=== PATIENT | female | born 1980 ===

== ENCOUNTER 2019-11-28 05:15 | Inpatient (IN) | payer BC, OTHER ==
[2019-11-28] MEDS ORDERED: Sodium Chloride 0.9% 2.5 ML Syringe FLUSH PRN (05:19)
[2019-11-28] MEDS ORDERED: ceFAZolin 2 GM in Premix Bag 1 BAG IV ONE (05:19)
[2019-11-28] MEDS ORDERED: Citric Acid/Sodium Citrate Solution 30 ML Cup PO ONE (05:19)
[2019-11-28] MEDS ORDERED: Sodium Chloride 0.9% 10 ML SDV IV PRN (05:19)
[2019-11-28] MEDS ORDERED: Ondansetron 4 MG/2 ML SDV IVPUSH PRN ×3 (05:19→08:49)
[2019-11-28] MEDS ORDERED: Oxytocin/0.9 % Sodium Chloride 30 UNIT/500 ML BAG IV SCH (05:30)
[2019-11-28] MEDS: Lactated Ringers 1,000 ML IV SCH ×2 (05:40→07:20)
[2019-11-28 06:42] LABS: BLOOD UREA NITROGEN,BUN 15 mg/dL (7.0-18.0); CARBON DIOXIDE,CO2 25.7 mmol/L (21.0-32.0); CHLORIDE,CL 105 mmol/L (98-107); GLUCOSE RANDOM 90 mg/dL (74-106); POTASSIUM,K 4.3 mmol/L (3.5-5.1); SODIUM,NA 139 mmol/L (136-145)
--- NOTE | 2019-11-28 07:10 | PCM.PREANE ---
Preanesthetic Assessment - Anesthesia/Transfusion/Family Hx Anesthesia History: Prior Anesthesia Without Reaction Family History of Anesthesia Reaction: No Transfusion History: No Prior Transfusion(s) Intubation History: Unknown - Review of Systems General: No Symptoms Pulmonary: No Symptoms Cardiovascular: No Symptoms Gastrointestinal: No Symptoms Neurological: No Symptoms Other: Reports: None - Physical Assessment Height: 5 ft 10.5 in Weight: 123.831 kg ASA Class: 2 Mental Status: Alert & Oriented x3 Airway Class: Mallampati = 2 Dentition: Reports: Normal Dentition (lower retainer) Thyro-Mental Finger Breadths: 3 Mouth Opening Finger Breadths: 3 ROM/Head Extension: Full Lungs: Clear to Auscultation, Normal Respiratory Effort Cardiovascular: Regular Rate, Regular Rhythm - Lab Values: Laboratory Last Values WBC 12.04 K/uL (4.0-11.0) H 11/28/19 05:55 RBC 3.88 M/uL (4.30-5.90) L 11/28/19 05:55 Hgb 11.2 g/dL (12.0-16.0) L 11/28/19 05:55 Hct 34.4 % (36.0-46.0) L 11/28/19 05:55 MCV 88.7 fL (80.0-98.0) 11/28/19 05:55 MCH 28.9 pg (27.0-32.0) 11/28/19 05:55 MCHC 32.6 g/dL (31.0-37.0) 11/28/19 05:55 RDW Std Deviation 47.5 fl (28.0-62.0) 11/28/19 05:55 RDW Coeff of Juan Miguel 15 % (11.0-15.0) 11/28/19 05:55 Plt Count 241 K/uL (150-400) 11/28/19 05:55 MPV 10.90 fL (7.40-12.00) 11/28/19 05:55 Nucleated RBC % 0.0 /100WBC 11/28/19 05:55 Nucleated RBCs # 0 K/uL 11/28/19 05:55 Sodium 139 mmol/L (136-145) 11/28/19 05:55 Potassium 4.3 mmol/L (3.5-5.1) 11/28/19 05:55 Chloride 105 mmol/L (98-107) 11/28/19 05:55 Carbon Dioxide 25.7 mmol/L (21.0-32.0) 11/28/19 05:55 BUN 15 mg/dL (7.0-18.0) 11/28/19 05:55 Creatinine 1.0 mg/dL (0.6-1.0) 11/28/19 05:55 Est Cr Clr Drug Dosing 81.40 mL/min 11/28/19 05:55 Estimated GFR (MDRD) > 60.0 ml/min 11/28/19 05:55 Glucose 90 mg/dL (74-106) 11/28/19 05:55 Uric Acid 5.3 mg/dL (2.6-7.2) 11/28/19 05:55 Calcium 8.8 mg/dL (8.5-10.1) 11/28/19 05:55 Total Bilirubin 0.1 mg/dL (0.2-1.0) L 11/28/19 05:55 AST 18 IU/L (15-37) 11/28/19 05:55 ALT 15 IU/L (14-63) 11/28/19 05:55 Alkaline Phosphatase 131 U/L (46-116) H 11/28/19 05:55 Total Protein 5.8 g/dL (6.4-8.2) L 11/28/19 05:55 Albumin 2.3 g/dL (3.4-5.0) L 11/28/19 05:55 Globulin 3.5 g/dL (2.6-4.0) 11/28/19 05:55 Albumin/Globulin Ratio 0.7 (0.9-1.6) L 11/28/19 05:55 Blood Type O POSITIVE 11/28/19 05:55 Antibody Screen NEGATIVE 11/28/19 05:55 - Allergies Allergies/Adverse Reactions: Allergies Allergy/AdvReac Type Severity Reaction Status Date / Time Penicillins Allergy Hives Verified 11/28/19 05:19 - Blood Blood Available: No - Anesthesia Plan Pre-Op Medication Ordered: None - Acknowledgements Anesthesia Type Planned: Spinal (general anesthesia back-up plan) Pt an Appropriate Candidate for the Planned Anesthesia: Yes Alternatives and Risks of Anesthesia Discussed w Pt/Guardian: Yes Pt/Guardian Understands and Agrees with Anesthesia Plan: Yes PreAnesthesia Questionnaire HEENT History: Reports: Other (See Below) Other HEENT History: wears glasses/contacts, has a permanent lower dental retainer Cardiovascular History: Reports: Hypertension Respiratory History: Reports: Other (See Below) Other Respiratory History: has not been tested for sleep apnea but uses her fathers CPAP every night and sleeps better than before CPAP use Gastrointestinal History: Reports: GERD, Hiatal Hernia Other Gastrointestinal History: cannot lay flat at night- wakes up vomiting if she does. Has taken Omeprazole for many years Genitourinary History: Reports: Other (See Below) Other Genitourinary History: states her "lab tests for kidney go up and down" FOOD CRITIC History: Reports: Musculoskeletal History: Reports: Arthritis, Back Pain, Chronic, Fracture Other Musculoskeletal History: hx of fx ribs and pelvis, has chronic hip and pelvic pain Psychiatric History: Reports: Anxiety, Depression Endocrine/Metabolic History: Reports: Obesity/BMI 30+ - Infectious Disease History Infectious Disease History: Reports: Chicken Pox - Past Surgical History Head Surgeries/Procedures: Reports: None Female Surgical History: Reports: Breast Reduction - SUBSTANCE USE Smoking Status *Q: Never Smoker Second Hand Smoke Exposure: No Recreational Drug Use History: No - HOME MEDS Home Medications: Home Meds Aspirin [Adult Low Dose Aspirin EC] 81 mg PO DAILY 11/22/19 [History] Labetalol HCl [Labetalol] 200 mg PO BID 11/22/19 [History] NIFEdipine [Procardia XL] 30 mg PO QPM 11/22/19 [History] Omeprazole 60 mg PO BID 11/22/19 [History] No122/Iron/Folic Acid [ Multi Tablet] 1 tab PO DAILY 11/22/19 [ History] Venlafaxine [Effexor] 75 mg PO QPM 11/22/19 [History] busPIRone [Buspar] 10 mg PO BID 11/22/19 [History] traZODone HCl [Trazodone HCl] 150 mg PO BEDTIME 11/22/19 [History] - CURRENT (IN HOUSE) MEDS Current Meds: Current Medications Lactated Ringer's (Ringers, Lactated) 1,000 mls @ 500 mls/hr IV BOLUS [facility] Last Admin: 11/28/19 05:40 Dose: 500 mls/hr Oxytocin/Sodium Chloride (Oxytocin 30 Unit/500 Ml-Ns) 30 unit in 500 mls @ 250 mls/hr IV TITRATE [facility] Ondansetron HCl (Zofran) 4 mg IVPUSH Q4H PRN PRN Reason: Nausea/Vomiting Sodium Chloride (Saline Flush) 10 ml FLUSH ASDIRECTED PRN PRN Reason: Keep Vein Open Sodium Chloride (Saline Flush) 2.5 ml FLUSH ASDIRECTED PRN PRN Reason: Keep Vein Open Sodium Chloride (Normal Saline) 10 ml IV ASDIRECTED PRN PRN Reason: IV Use Discontinued Medications Citric Acid/Sodium Citrate (Bicitra Solution) 30 ml PO ONETIME ONE Stop: 11/28/19 05:20 Cefazolin Sodium/Dextrose 2 gm (/ Premix) 50 mls @ 100 mls/hr IV ONETIME ONE Stop: 11/28/19 05:48
[2019-11-28] MEDS ORDERED: Propofol 200 MG/20 ML SDV ONE (07:18)
[2019-11-28] MEDS ORDERED: Ondansetron 4 MG/2 ML SDV ONE (07:18)
[2019-11-28] MEDS ORDERED: Oxytocin 10 Units/1 ML SDV ONE (07:19)
[2019-11-28] MEDS ORDERED: Sodium Chloride 0.9% 20 ML ONE ×4 (07:19→08:32)
[2019-11-28] MEDS ORDERED: ePHEDrine 50 MG/ML SDV ONE ×3 (07:19→08:32)
[2019-11-28] MEDS ORDERED: Famotidine 20 MG/2 ML SDV ONE (07:36)
[2019-11-28] MEDS ORDERED: ceFAZolin 1 GM Vial ONE (07:51)
[2019-11-28] MEDS ORDERED: Morphine PF 10 MG/10 ML SDV ONE (07:51)
[2019-11-28] MEDS ORDERED: Naloxone 0.4 MG/ML Syringe IVPUSH PRN (08:36)
[2019-11-28] MEDS ORDERED: fentaNYL 100 MCG/2 ML SDV IVPUSH PRN (08:36)
[2019-11-28] MEDS ORDERED: diphenhydrAMINE 50 MG/ML SDV IVPUSH PRN ×2 (08:36→08:49)
[2019-11-28] MEDS ORDERED: Acetaminophen/oxyCODONE 325-5 MG Tab PO PRN ×3 (08:36→08:49)
[2019-11-28] MEDS ORDERED: Misoprostol 200 MCG Tab RECTAL PRN (08:49)
[2019-11-28] MEDS ORDERED: Methylergonovine 0.2 MG/1 ML Amp IM PRN (08:49)
[2019-11-28] MEDS ORDERED: Oxytocin 10 Units/1 ML SDV IM PRN (08:49)
[2019-11-28] MEDS ORDERED: Bisacodyl 10 MG Supp RECTAL PRN (08:49)
[2019-11-28] MEDS ORDERED: Tranexamic Acid 1,000 MG in Sodium Chloride 0.9% 100 ML IV PRN (08:49)
[2019-11-28] MEDS ORDERED: Lanolin 100% Cream 7 GM Tube TOP PRN (08:49)
[2019-11-28] MEDS ORDERED: Ibuprofen 800 MG Tab PO PRN (08:49)
--- NOTE | 2019-11-28 08:57 | PCM.OPNOTE ---
- General Post-Op/Procedure Note Date of Surgery/Procedure: 11/28/19 Operative Procedure(s): Primary low-transverse section Findings: Live female in cephalic presentation, Apgars 8/8, weight pending. Normal-appearing uterus, ovaries, and tubes. Placenta with 3-vessel cord. Pre Op Diagnosis: 39yo @ 37w3d. Desires primary delivery. Chronic hypertension. Advanced maternal age Post-Op Diagnosis: 39yo . Desires primary delivery. Chronic hypertension. Advanced maternal age Anesthesia Technique: Spinal Primary Surgeon: Cynthia Vasquez Pathology: Placenta Fluid Replacement, Intraop: 2,400 Output, Urine Amount: 120 EBL in mLs: 700 Complications: 6mm burn of skin left inferior aspect of pfannenstiel Condition: Good
[2019-11-28] MEDS ORDERED: Oxytocin/Lactated Ringers 30 UNIT/500 ML BAG IV SCH (09:00)
[2019-11-28] MEDS ORDERED: Lactated Ringers 1,000 ML IV SCH (09:00)
[2019-11-28] MEDS: Ketorolac 30 MG/ML SDV IVPUSH SCH ×3 (09:32→21:30)
[2019-11-28] MEDS: Sodium Chloride 0.9% 10 ML Syringe FLUSH PRN ×2 (09:35→15:37)
--- NOTE | 2019-11-28 09:35 | PCM.POSTAN ---
POST ANESTHESIA ASSESSMENT - VITAL SIGNS Vital Signs: Bp maintaining. Ephidrine once in recovery. Will continue to watch. Rx as needed. - RESPIRATORY Respiratory Status: Respiratory Rate WNL - CARDIOVASCULAR CV Status: Pulse Rate WNL Free Text/Narrative:: Ephidrine 15mg x1 in recovery. - GASTROINTESTINAL GI Status: No Symptoms, Nauseau Free Text/Narrative:: Gets Queezy with BPs < 94. - PAIN Pain Score: 0 (Block regressing) - POST OP HYDRATION Hydration Status: Adequate & Stable
[2019-11-28] MEDS: busPIRone 5 MG Tab PO SCH ×2 (10:43→21:31)
[2019-11-28] MEDS: Docusate Sodium 100 MG Cap PO SCH ×2 (10:43→21:31)
[2019-11-28] MEDS: Omeprazole 20 MG Cap.CR PO SCH ×2 (10:43→21:32)
[2019-11-28] MEDS: Labetalol 100 MG Tab PO SCH ×2 (10:43→21:31)
[2019-11-28] MEDS: Nalbuphine 10 MG/1 ML Vial IVPUSH PRN ×2 (12:52→19:34)
--- NOTE | 2019-11-28 14:37 | OR ---
SURGEON: Cynthia Vasquez MD DATE OF PROCEDURE: 11/28/2019 PREOPERATIVE DIAGNOSES: 1. A 39-year-old, G2, P0-0-1-0 at 37 weeks and 3 days gestation. 2. Desires primary delivery upon maternal request. 3. Chronic hypertension. 4. Advanced maternal age. POSTOPERATIVE DIAGNOSES: 1. A 39-year-old, G2, P1-0-1-1. 2. Desires primary delivery upon maternal request. 3. Chronic hypertension. 4. Advanced maternal age. PROCEDURE: Primary low transverse section. PRIMARY SURGEON: Cynthia Vasquez MD ANESTHESIA: Spinal. IV FLUIDS: 2400 mL LR. URINE OUTPUT: 120 mL. ESTIMATED BLOOD LOSS: 700 mL. PATHOLOGY: Placenta. FINDINGS: 1. Live female , cephalic presentation, scores 8 and 8 at one and five minutes respectively, weight 3280g. 2. Normal-appearing uterus, ovaries, and tubes. 3. Placenta with 3-vessel cord. COMPLICATIONS: 6 mm burn of skin on the left inferior aspect of the Pfannenstiel incision. INDICATIONS: This is a 39-year-old G2, P0-0-1-0 who presented at 37 weeks and 3 days gestation for planned delivery. The patient desired delivery upon maternal request. The delivery was planned early due to chronic hypertension, on labetalol and nifedipine. Prior to surgery, the risks and benefits of delivery versus vaginal delivery were discussed with the patient and she continued to desire primary delivery upon maternal request. PROCEDURE IN DETAIL: The patient was taken to the operating room where spinal anesthesia was obtained. She was placed in the dorsal supine position with leftward tilt. She was prepared and draped in a normal sterile fashion. A Pfannenstiel skin incision was made with a scalpel and carried through to the underlying fascia with the Bovie. A subcutaneous vessel began bleeding. The hemostat was used to grasp this vessel and Bovie used to obtain hemostasis. During this process, the skin was inadvertently burned on the left inferior aspect of the incision. The fascia was incised in the midline and the incision extended laterally with curved Buitrago scissors. The superior aspect of fascial incision was grasped with Luciana clamps, elevated, and underlying rectus muscles dissected off bluntly. In a similar fashion, inferior aspect of the fascial incision was grasped with Luciana clamps, elevated, and underlying rectus muscles dissected off bluntly. The peritoneum was identified in the midline and entered bluntly. The peritoneal incision was extended using manual traction. A large Filipe retractor was placed. A low uterine hysterotomy was created. The placenta was noted at the site of the hysterotomy. The head was delivered with rupture of membranes occurring. Using fundal pressure, the infant was delivered. The nose and mouth were suctioned with bulb suction. The was dried with a blue towel. The cord was clamped after approximately 30 seconds of delayed cord clamping. The was handed off to the awaiting nurse. The placenta was removed manually. Cord blood was obtained. The uterus was cleared of all clots and debris. The uterine incision was repaired with a running lock stitch of 0 Vicryl suture. Hemostasis was observed. The gutters were cleared of all blood. The uterus was returned to the abdomen. The hysterotomy was inspected, noted to be hemostatic. The Filipe retractor was removed. The fascia was closed with a running stitch of 0 Vicryl suture. Subcutaneous tissue was closed with 3-0 Vicryl. The skin was closed with 4-0 Monocryl in a subcuticular fashion. The patient and tolerated the delivery well. All sponge, lap, and needle counts were correct x2. 2 g of Ancef was given prior to incision. GUILLE / NIEVES /[id number] MTDD
[2019-11-28] MEDS: NIFEdipine 30 MG Tab.ER PO SCH (19:34)
[2019-11-28] MEDS: Venlafaxine 75 MG Cap.ER PO SCH (19:34)
[2019-11-28] MEDS: Silver Sulfadiazine 1% Crm 50 GM Tube TOP SCH (21:32)
[2019-11-29] MEDS: Ketorolac 30 MG/ML SDV IVPUSH SCH ×2 (06:02→13:06)
[2019-11-29] MEDS: Nalbuphine 10 MG/1 ML Vial IVPUSH PRN (06:11)
--- NOTE | 2019-11-29 07:58 | PCM48HPAN ---
Post Anesthesia Note - EVALUATION WITHIN 48HRS OF ANESTHETIC Vital Signs in Normal Range: Yes Patient Participated in Evaluation: Yes Respiratory Function Stable: Yes Airway Patent: Yes Cardiovascular Function Stable: Yes Hydration Status Stable: Yes Pain Control Satisfactory: Yes Nausea and Vomiting Control Satisfactory: Yes Mental Status Recovered: Yes Vital Signs: Last Vital Signs Temp 36.8 C 11/29/19 04:39 Pulse 86 11/29/19 06:00 Resp 16 11/29/19 06:00 BP 110/66 11/29/19 04:39 Pulse Ox 94 L 11/29/19 06:00
[2019-11-29] MEDS: Omeprazole 20 MG Cap.CR PO SCH ×2 (10:24→21:17)
[2019-11-29] MEDS: busPIRone 5 MG Tab PO SCH ×2 (10:25→21:17)
[2019-11-29] MEDS: Docusate Sodium 100 MG Cap PO SCH ×2 (10:25→21:21)
[2019-11-29] MEDS: Labetalol 100 MG Tab PO SCH ×2 (10:27→21:18)
--- NOTE | 2019-11-29 10:46 | PCM.PNPP ---
- General Info Date of Service: 11/29/19 Subjective Update: Patient doing well this morning. Pain controlled. Minimal lochia. Ambulating in room without dizziness. Voiding without difficulty. Tolerating oral intake. with some difficulty, going to start supplementing with formula. Functional Status: Reports: Pain Controlled, Tolerating Diet, Ambulating, Urinating - Review of Systems General: Reports: No Symptoms HEENT: Reports: No Symptoms Pulmonary: Reports: No Symptoms Cardiovascular: Reports: No Symptoms Gastrointestinal: Reports: No Symptoms Genitourinary: Reports: No Symptoms Musculoskeletal: Reports: No Symptoms Skin: Reports: No Symptoms Neurological: Reports: No Symptoms Psychiatric: Reports: No Symptoms - Patient Data Vital Signs - Most Recent: Last Vital Signs Temp 36.2 C 11/29/19 08:00 Pulse 79 11/29/19 10:27 Resp 18 11/29/19 08:00 BP 127/63 11/29/19 10:27 Pulse Ox 98 11/29/19 08:00 Weight - Most Recent: 123.831 kg I&O - Last 24 Hours: Intake & Output 11/28/19 11/29/19 11/29/19 22:59 06:59 14:59 Output Total 850 350 Balance -850 -350 Lab Results - Last 24 Hours: Laboratory Results - last 24 hr 11/29/19 Range/Units 05:56 Hgb 9.5 L (12.0-16.0) g/dL Hct 29.5 L (36.0-46.0) % Med Orders - Current: Current Medications Bisacodyl (Dulcolax) 10 mg RECTAL ONETIME PRN PRN Reason: Constipation Buspirone HCl (Buspar) 10 mg PO BID [facility] Last Admin: 11/29/19 10:25 Dose: 10 mg Diphenhydramine HCl (Benadryl) 25 mg IVPUSH Q6H PRN PRN Reason: Itching or Nausea Last Admin: 11/29/19 00:34 Dose: 25 mg Docusate Sodium (Colace) 100 mg PO BID [facility] Last Admin: 11/29/19 10:25 Dose: 100 mg Emollient Ointment (Lansinoh Hpa) 0 gm TOP ASDIRECTED PRN PRN Reason: Sore Nipples Fentanyl (Sublimaze) 50 mcg IVPUSH Q1H PRN PRN Reason: Pain (severe 7-10) Lactated Ringer's (Ringers, Lactated) 1,000 mls @ 500 mls/hr IV BOLUS [facility] Last Admin: 11/28/19 07:20 Dose: 500 mls/hr Oxytocin/Sodium Chloride (Oxytocin 30 Unit/500 Ml-Ns) 30 unit in 500 mls @ 250 mls/hr IV TITRATE [facility] Tranexamic Acid 1,000 mg/ (Sodium Chloride) 110 mls @ 660 mls/hr IV ONETIME PRN PRN Reason: Bleeding Lactated Ringer's (Ringers, Lactated) 1,000 mls @ 125 mls/hr IV ASDIRECTED [facility] Oxytocin/Lactated Ringer's (Pitocin In Lr 30 Units/500 Ml) 30 unit in 500 mls @ 999 mls/hr IV TITRATE [facility]; Protocol Ibuprofen (Motrin) 800 mg PO Q8H PRN PRN Reason: mild pain or fever Labetalol HCl (Normodyne) 200 mg PO BID [facility] Last Admin: 11/29/19 10:27 Dose: 200 mg Methylergonovine Maleate (Methergine) 0.2 mg IM ONETIME PRN PRN Reason: Excessive Vaginal Bleeding Misoprostol (Cytotec) 1,000 mcg RECTAL ONETIME PRN PRN Reason: excessive bleeding Nalbuphine HCl (Nubain) 5 mg IVPUSH ASDIRECTED PRN PRN Reason: Itching Last Admin: 11/29/19 06:11 Dose: 5 mg Nifedipine (Procardia Xl) 30 mg PO QPM [facility] Last Admin: 11/28/19 19:34 Dose: 30 mg Omeprazole (Omeprazole) 60 mg PO BID [facility] Last Admin: 11/29/19 10:24 Dose: 60 mg Ondansetron HCl (Zofran) 4 mg IVPUSH Q4H PRN PRN Reason: Nausea/Vomiting Ondansetron HCl (Zofran) 4 mg IVPUSH Q6H PRN PRN Reason: Nausea Ondansetron HCl (Zofran) 4 mg IVPUSH Q4H PRN PRN Reason: Nausea/Vomiting Oxycodone/Acetaminophen (Percocet 325-5 Mg) 2 tab PO Q6H PRN PRN Reason: Pain (moderate 4-6) Oxycodone/Acetaminophen (Percocet 325-5 Mg) 1 tab PO Q4H PRN PRN Reason: Pain (moderate 4-6) Oxycodone/Acetaminophen (Percocet 325-5 Mg) 2 tab PO Q4H PRN PRN Reason: Pain (moderate 4-6) Oxytocin (Pitocin) 10 unit IM ASDIRECTED PRN PRN Reason: Excessive Vaginal Bleeding Silver Sulfadiazine (Silvadene 1% Cream 50 Gm) 1 gm TOP BID [facility] Last Admin: 11/28/19 21:32 Dose: Not Given Sodium Chloride (Saline Flush) 10 ml FLUSH ASDIRECTED PRN PRN Reason: Keep Vein Open Last Admin: 11/28/19 15:37 Dose: 10 ml Sodium Chloride (Saline Flush) 2.5 ml FLUSH ASDIRECTED PRN PRN Reason: Keep Vein Open Last Admin: 11/28/19 12:55 Dose: 2.5 ml Sodium Chloride (Normal Saline) 10 ml IV ASDIRECTED PRN PRN Reason: IV Use Trazodone HCl (Trazodone Hcl) 150 mg PO BEDTIME [facility] Last Admin: 11/28/19 21:32 Dose: Not Given Venlafaxine HCl (Effexor Xr) 75 mg PO QPM [facility] Last Admin: 11/28/19 19:34 Dose: 75 mg Discontinued Medications Cefazolin Sodium (Ancef) Confirm Administered Dose 2 gm .ROUTE .STK-MED ONE Stop: 11/28/19 07:52 Citric Acid/Sodium Citrate (Bicitra Solution) 30 ml PO ONETIME ONE Stop: 11/28/19 05:20 Last Admin: 11/28/19 12:58 Dose: Not Given Diphenhydramine HCl (Benadryl) 25 mg IVPUSH Q4H PRN PRN Reason: Itching Stop: 11/29/19 08:36 Ephedrine Sulfate (Ephedrine Sulfate) Confirm Administered Dose 100 mg .ROUTE .STK-MED ONE Stop: 11/28/19 07:20 Ephedrine Sulfate (Ephedrine Sulfate) Confirm Administered Dose 100 mg .ROUTE .STK-MED ONE Stop: 11/28/19 08:09 Ephedrine Sulfate (Ephedrine Sulfate) Confirm Administered Dose 100 mg .ROUTE .STK-MED ONE Stop: 11/28/19 08:33 Famotidine (Pepcid) Confirm Administered Dose 40 mg .ROUTE .STK-MED ONE Stop: 11/28/19 07:37 Last Admin: 11/28/19 12:59 Dose: 40 mg Cefazolin Sodium/Dextrose 2 gm (/ Premix) 50 mls @ 100 mls/hr IV ONETIME ONE Stop: 11/28/19 05:48 Last Admin: 11/28/19 08:00 Dose: 100 mls/hr Acetaminophen (Ofirmev) Confirm Administered Dose 100 mls @ as directed .ROUTE .STK-MED ONE Stop: 11/28/19 07:15 Last Admin: 11/28/19 08:00 Dose: 999 mls/hr Sodium Chloride (Normal Saline) Confirm Administered Dose 20 mls @ as directed .ROUTE .STK-MED ONE Stop: 11/28/19 07:20 Sodium Chloride (Normal Saline) Confirm Administered Dose 20 mls @ as directed .ROUTE .STK-MED ONE Stop: 11/28/19 07:52 Sodium Chloride (Normal Saline) Confirm Administered Dose 20 mls @ as directed .ROUTE .STK-MED ONE Stop: 11/28/19 08:09 Sodium Chloride (Normal Saline) Confirm Administered Dose 20 mls @ as directed .ROUTE .STK-MED ONE Stop: 11/28/19 08:33 Ketorolac Tromethamine (Toradol) 30 mg IVPUSH Q6H [facility] Stop: 11/29/19 09:01 Last Admin: 11/29/19 06:02 Dose: 30 mg Morphine Sulfate (Duramorph Pf) Confirm Administered Dose 10 mg .ROUTE .STK-MED ONE Stop: 11/28/19 07:52 Naloxone HCl (Narcan) 0.1 mg IVPUSH ONETIME PRN PRN Reason: Respiratory Depression Stop: 11/29/19 08:36 Ondansetron HCl (Zofran) Confirm Administered Dose 4 mg .ROUTE .STK-MED ONE Stop: 11/28/19 07:19 Oxytocin (Pitocin) Confirm Administered Dose 30 unit .ROUTE .STK-MED ONE Stop: 11/28/19 07:20 Propofol (Diprivan 20 Ml) Confirm Administered Dose 200 mg .ROUTE .STK-MED ONE Stop: 11/28/19 07:19 - Interaction Infant Disposition, : [place] at Bedside Feeding: Attempted ; Nursed Fair/Poor, Continues to Breastfeed, Encouraged to Breastfeed Support Person: - Recovery Exam Fundal Tone: Firm Fundal Level: 1 Fingerbreadths Below Umbilicus Fundal Placement: Midline Lochia Amount: Scant Lochia Color: Rubra/Red Bladder Status: Indwelling Catheter in Place Urinary Elimination: Indwelling Catheter - Exam General: Alert, Oriented Neck: Supple Lungs: Clear to Auscultation, Normal Respiratory Effort Cardiovascular: Regular Rate, Regular Rhythm GI/Abdominal Exam: Soft, Non-Tender Extremities: Non-Tender Skin: Warm, Dry, Intact Wound/Incisions: Healing Well Neurological: No New Focal Deficit Psy/Mental Status: Alert, Normal Affect, Normal Mood - Problem List & Annotations (1) delivery delivered SNOMED Code(s): 415386500 Code(s): O82 - ENCOUNTER FOR DELIVERY WITHOUT INDICATION Status: Acute Current Visit: Yes (2) Chronic hypertension complicating or reason for care during childbirth SNOMED Code(s): 8805190 Code(s): O10.92 - UNSP PRE-EXISTING HYPERTENSION COMPLICATING CHILDBIRTH Status: Acute Current Visit: Yes (3) Advanced maternal age (AMA) in SNOMED Code(s): 569041487 Code(s): LXY4901 - Status: Acute Current Visit: Yes - Problem List Review Problem List Initiated/Reviewed/Updated: Yes - My Orders Last 24 Hours: My Active Orders 11/28/19 18:00 NIFEdipine [Procardia XL] 30 mg PO QPM Venlafaxine [Effexor XR] 75 mg PO QPM 11/28/19 21:00 traZODone HCl 150 mg PO BEDTIME 11/28/19 Lunch Regular Diet [DIET] - Assessment Assessment:: 39yo s/p 1LTCS @ 37w3d, POD#1 - Plan Plan:: 1. Post-op care: Encourage ambulation. Continue to breastfeed with supplementation. 2. Hypertension: Continue Labetalol & Nifedipine. Denies preeclampsia symptoms. Monitor BP. 3. Advanced maternal age 4. Dispo: Anticipate discharge home tomorrow.
[2019-11-29] MEDS: Silver Sulfadiazine 1% Crm 50 GM Tube TOP SCH ×3 (12:49→21:16)
[2019-11-29] MEDS ORDERED: Ketorolac 30 MG/ML SDV ONE (13:01)
[2019-11-29] MEDS: Venlafaxine 75 MG Cap.ER PO SCH (21:48)
[2019-11-29] MEDS: NIFEdipine 30 MG Tab.ER PO SCH (23:21)
--- NOTE | 2019-11-30 08:23 | PCM.PNPP ---
- General Info Date of Service: 11/30/19 Subjective Update: Patient doing well this morning. Pain controlled. Minimal lochia. Ambulating in room without dizziness. Voiding without difficulty. Tolerating oral intake. with formula supplementation. Functional Status: Reports: Pain Controlled, Tolerating Diet, Ambulating, Urinating - Review of Systems General: Reports: No Symptoms HEENT: Reports: No Symptoms Pulmonary: Reports: No Symptoms Cardiovascular: Reports: No Symptoms Gastrointestinal: Reports: No Symptoms Genitourinary: Reports: No Symptoms Musculoskeletal: Reports: No Symptoms Skin: Reports: No Symptoms Neurological: Reports: No Symptoms Psychiatric: Reports: No Symptoms - Patient Data Vital Signs - Most Recent: Last Vital Signs Temp 36.2 C 11/30/19 04:33 Pulse 62 11/30/19 04:33 Resp 16 11/30/19 04:33 BP 123/69 11/30/19 04:33 Pulse Ox 97 11/30/19 04:33 Weight - Most Recent: 123.831 kg Lab Results - Last 24 Hours: Laboratory Results - last 24 hr 11/28/19 Range/Units 05:55 RPR Non-Reac (Non-Reac) Med Orders - Current: Current Medications Bisacodyl (Dulcolax) 10 mg RECTAL ONETIME PRN PRN Reason: Constipation Buspirone HCl (Buspar) 10 mg PO BID [facility] Last Admin: 11/29/19 21:17 Dose: 10 mg Diphenhydramine HCl (Benadryl) 25 mg IVPUSH Q6H PRN PRN Reason: Itching or Nausea Last Admin: 11/29/19 00:34 Dose: 25 mg Docusate Sodium (Colace) 100 mg PO BID [facility] Last Admin: 11/29/19 21:21 Dose: 100 mg Emollient Ointment (Lansinoh Hpa) 0 gm TOP ASDIRECTED PRN PRN Reason: Sore Nipples Fentanyl (Sublimaze) 50 mcg IVPUSH Q1H PRN PRN Reason: Pain (severe 7-10) Lactated Ringer's (Ringers, Lactated) 1,000 mls @ 500 mls/hr IV BOLUS [facility] Last Admin: 11/28/19 07:20 Dose: 500 mls/hr Oxytocin/Sodium Chloride (Oxytocin 30 Unit/500 Ml-Ns) 30 unit in 500 mls @ 250 mls/hr IV TITRATE [facility] Tranexamic Acid 1,000 mg/ (Sodium Chloride) 110 mls @ 660 mls/hr IV ONETIME PRN PRN Reason: Bleeding Lactated Ringer's (Ringers, Lactated) 1,000 mls @ 125 mls/hr IV ASDIRECTED [facility] Oxytocin/Lactated Ringer's (Pitocin In Lr 30 Units/500 Ml) 30 unit in 500 mls @ 999 mls/hr IV TITRATE [facility]; Protocol Ibuprofen (Motrin) 800 mg PO Q8H PRN PRN Reason: mild pain or fever Labetalol HCl (Normodyne) 200 mg PO BID [facility] Last Admin: 11/29/19 21:18 Dose: 200 mg Methylergonovine Maleate (Methergine) 0.2 mg IM ONETIME PRN PRN Reason: Excessive Vaginal Bleeding Misoprostol (Cytotec) 1,000 mcg RECTAL ONETIME PRN PRN Reason: excessive bleeding Nalbuphine HCl (Nubain) 5 mg IVPUSH ASDIRECTED PRN PRN Reason: Itching Last Admin: 11/29/19 06:11 Dose: 5 mg Nifedipine (Procardia Xl) 30 mg PO QPM [facility] Last Admin: 11/29/19 23:21 Dose: Not Given Omeprazole (Omeprazole) 60 mg PO BID [facility] Last Admin: 11/29/19 21:17 Dose: 60 mg Ondansetron HCl (Zofran) 4 mg IVPUSH Q4H PRN PRN Reason: Nausea/Vomiting Ondansetron HCl (Zofran) 4 mg IVPUSH Q6H PRN PRN Reason: Nausea Ondansetron HCl (Zofran) 4 mg IVPUSH Q4H PRN PRN Reason: Nausea/Vomiting Oxycodone/Acetaminophen (Percocet 325-5 Mg) 2 tab PO Q6H PRN PRN Reason: Pain (moderate 4-6) Last Admin: 11/29/19 21:47 Dose: 2 tab Oxycodone/Acetaminophen (Percocet 325-5 Mg) 1 tab PO Q4H PRN PRN Reason: Pain (moderate 4-6) Oxycodone/Acetaminophen (Percocet 325-5 Mg) 2 tab PO Q4H PRN PRN Reason: Pain (moderate 4-6) Last Admin: 11/30/19 07:31 Dose: 2 tab Oxytocin (Pitocin) 10 unit IM ASDIRECTED PRN PRN Reason: Excessive Vaginal Bleeding Silver Sulfadiazine (Silvadene 1% Cream 50 Gm) 1 gm TOP BID [facility] Last Admin: 11/29/19 21:05 Dose: 1 applic Sodium Chloride (Saline Flush) 10 ml FLUSH ASDIRECTED PRN PRN Reason: Keep Vein Open Last Admin: 11/28/19 15:37 Dose: 10 ml Sodium Chloride (Saline Flush) 2.5 ml FLUSH ASDIRECTED PRN PRN Reason: Keep Vein Open Last Admin: 11/28/19 12:55 Dose: 2.5 ml Sodium Chloride (Normal Saline) 10 ml IV ASDIRECTED PRN PRN Reason: IV Use Trazodone HCl (Trazodone Hcl) 150 mg PO BEDTIME [facility] Last Admin: 11/28/19 21:32 Dose: Not Given Venlafaxine HCl (Effexor Xr) 75 mg PO QPM [facility] Last Admin: 11/29/19 21:48 Dose: 75 mg Discontinued Medications Cefazolin Sodium (Ancef) Confirm Administered Dose 2 gm .ROUTE .STK-MED ONE Stop: 11/28/19 07:52 Citric Acid/Sodium Citrate (Bicitra Solution) 30 ml PO ONETIME ONE Stop: 11/28/19 05:20 Last Admin: 11/28/19 12:58 Dose: Not Given Diphenhydramine HCl (Benadryl) 25 mg IVPUSH Q4H PRN PRN Reason: Itching Stop: 11/29/19 08:36 Ephedrine Sulfate (Ephedrine Sulfate) Confirm Administered Dose 100 mg .ROUTE .STK-MED ONE Stop: 11/28/19 07:20 Ephedrine Sulfate (Ephedrine Sulfate) Confirm Administered Dose 100 mg .ROUTE .STK-MED ONE Stop: 11/28/19 08:09 Ephedrine Sulfate (Ephedrine Sulfate) Confirm Administered Dose 100 mg .ROUTE .STK-MED ONE Stop: 11/28/19 08:33 Famotidine (Pepcid) Confirm Administered Dose 40 mg .ROUTE .STK-MED ONE Stop: 11/28/19 07:37 Last Admin: 11/28/19 12:59 Dose: 40 mg Cefazolin Sodium/Dextrose 2 gm (/ Premix) 50 mls @ 100 mls/hr IV ONETIME ONE Stop: 11/28/19 05:48 Last Admin: 11/28/19 08:00 Dose: 100 mls/hr Acetaminophen (Ofirmev) Confirm Administered Dose 100 mls @ as directed .ROUTE .STK-MED ONE Stop: 11/28/19 07:15 Last Admin: 11/28/19 08:00 Dose: 999 mls/hr Sodium Chloride (Normal Saline) Confirm Administered Dose 20 mls @ as directed .ROUTE .STK-MED ONE Stop: 11/28/19 07:20 Sodium Chloride (Normal Saline) Confirm Administered Dose 20 mls @ as directed .ROUTE .STK-MED ONE Stop: 11/28/19 07:52 Sodium Chloride (Normal Saline) Confirm Administered Dose 20 mls @ as directed .ROUTE .STK-MED ONE Stop: 11/28/19 08:09 Sodium Chloride (Normal Saline) Confirm Administered Dose 20 mls @ as directed .ROUTE .STK-MED ONE Stop: 11/28/19 08:33 Ketorolac Tromethamine (Toradol) 30 mg IVPUSH Q6H [facility] Stop: 11/29/19 09:01 Last Admin: 11/29/19 13:06 Dose: 30 mg Ketorolac Tromethamine (Toradol) Confirm Administered Dose 30 mg .ROUTE .STK- MED ONE Stop: 11/29/19 13:02 Last Admin: 11/29/19 23:45 Dose: Not Given Morphine Sulfate (Duramorph Pf) Confirm Administered Dose 10 mg .ROUTE .STK-MED ONE Stop: 11/28/19 07:52 Naloxone HCl (Narcan) 0.1 mg IVPUSH ONETIME PRN PRN Reason: Respiratory Depression Stop: 11/29/19 08:36 Ondansetron HCl (Zofran) Confirm Administered Dose 4 mg .ROUTE .STK-MED ONE Stop: 11/28/19 07:19 Oxytocin (Pitocin) Confirm Administered Dose 30 unit .ROUTE .STK-MED ONE Stop: 11/28/19 07:20 Propofol (Diprivan 20 Ml) Confirm Administered Dose 200 mg .ROUTE .STK-MED ONE Stop: 11/28/19 07:19 - Interaction Disposition, : Callands at Bedside Infant Feeding: Attempted ; Nursed Fair/Poor, Continues to Breastfeed, Encouraged to Breastfeed Support Person: - Recovery Exam Fundal Tone: Firm Fundal Level: 1 Fingerbreadths Below Umbilicus Fundal Placement: Midline Lochia Amount: Scant Lochia Color: Rubra/Red Bladder Status: Voiding Urinary Elimination: Voided - Exam General: Alert, Oriented Neck: Supple Lungs: Clear to Auscultation, Normal Respiratory Effort Cardiovascular: Regular Rate, Regular Rhythm GI/Abdominal Exam: Soft, Non-Tender Extremities: Non-Tender Skin: Warm, Dry, Intact Wound/Incisions: Healing Well Neurological: No New Focal Deficit Psy/Mental Status: Alert, Normal Affect, Normal Mood - Problem List & Annotations (1) delivery delivered SNOMED Code(s): 843629531 Code(s): O82 - ENCOUNTER FOR DELIVERY WITHOUT INDICATION Status: Acute Current Visit: Yes (2) Chronic hypertension complicating or reason for care during childbirth SNOMED Code(s): 0734953 Code(s): O10.92 - UNSP PRE-EXISTING HYPERTENSION COMPLICATING CHILDBIRTH Status: Acute Current Visit: Yes (3) Advanced maternal age (AMA) in SNOMED Code(s): 031451124 Code(s): [id number] - Status: Acute Current Visit: Yes - Problem List Review Problem List Initiated/Reviewed/Updated: Yes - My Orders Last 24 Hours: My Active Orders 11/30/19 08:22 Ready for Discharge [RC] PER UNIT ROUTINE - Assessment Assessment:: 39yo s/p 1LTCS @ 37w3d, POD#2 - Plan Plan:: 1. Post-op care: Encourage ambulation. Continue to breastfeed with supplementation. 2. Hypertension: Continue Labetalol & Nifedipine. Denies preeclampsia symptoms. Monitor BP. 3. Advanced maternal age 4. Dispo: Discharge home today, reviewed discharge instructions. Incision check scheduled for 2 weeks.
[2019-11-30] MEDS: Omeprazole 20 MG Cap.CR PO SCH (09:14)
[2019-11-30] MEDS: busPIRone 5 MG Tab PO SCH (09:15)
[2019-11-30] MEDS: Labetalol 100 MG Tab PO SCH (09:16)
[2019-11-30] MEDS: Silver Sulfadiazine 1% Crm 50 GM Tube TOP SCH (09:17)
[2019-11-30] MEDS: Docusate Sodium 100 MG Cap PO SCH (09:17)
== END 2019-11-30 11:59 | disposition home or self-care (01) | DRG 540 ==
LOC: MW.OB 05:15
PROVIDERS: ADMIT Obstetrics & Gynecology; ATTEND Obstetrics & Gynecology
PROC: 10D00Z1 Extraction of Products of Conception, Low, Open Approach (ICD-10-PCS; principal; 2019-11-28)
DX: O16.4 Unspecified maternal hypertension, complicating childbirth (principal); Z3A.37 37 weeks gestation of pregnancy; Z37.0 Single live birth
CPT/HCPCS: 01961; 36415; 59025; 80053; 84550; 85014; 85018; 85027; 86592; 86593; 86850; 86900; 86901; 88307; A9270-GY; J0131; J0690; J1200; J1885; J2270; J2300; J2405; J2590; J2704; J3490; J7120